=== PATIENT | male | born 1975 | race Caucasian/White ===

== ENCOUNTER 2019-08-06 10:56 | Inpatient (IN) | payer MEDICAID, OTHER ==
[~2019-08-06] VITALS: Ht 180.3 cm; Wt 99.2 kg
[2019-08-06] MEDS ORDERED: CHOL100018 PO (11:07)
[2019-08-06 12:23] LABS: BASOPHILS % (AUTO) 0.5 % (0.0-2.0); EOSINOPHILS % (AUTO) 2.4 % (1.0-6.0); HEMATOCRIT 44.7 % (41-53); HEMOGLOBIN 15.9 g/dL (13.5-17.5); LYMPHOCYTES % (AUTO) 30.3 % (22.0-44.0); MEAN CORPUSCULAR HEMOGLOBIN 29.7 pg (26.0-34.0); MEAN CORPUSCULAR HGB CONC 35.5 G/dL (31.0-37.0); MEAN CORPUSCULAR VOLUME 84 fL (80-100); MONOCYTES # (AUTO) 0.5 K/uL (0.1-1.0); MONOCYTES % (AUTO) 7.2 % (2.0-9.0); NEUTROPHILS # (AUTO) 3.9 K/uL (1.8-7.7); NEUTROPHILS % (AUTO) 59.6 % (40.0-70.0); PLATELET COUNT (AUTO) 191 K/uL (150-450); RED BLOOD CELL COUNT(AUTO) 5.35 MIL/uL (4.50-5.90); RED CELL DISTRIBUTION WIDTH 13.8 % (11.5-14.5)
[2019-08-06 12:26] LABS: APPEARANCE,URINE CLEAR (CLEAR); BILIRUBIN,URINE NEGATIVE (NEGATIVE); GLUCOSE, URINE (UA) NEGATIVE (NEGATIVE); KETONES,URINE NEGATIVE (NEGATIVE); LEUKOCYTE ESTERASE ,URINE NEGATIVE (NEGATIVE); NITRATE,URINE NEGATIVE (NEGATIVE); OCCULT BLOOD,URINE MODERATE (NEGATIVE); PH,URINE 6.5 (5.0-8.0); PROTEIN,URINE NEGATIVE (NEGATIVE); UROBILINOGEN,URINE 0.2 mg/dL (<=1.0)
[2019-08-06 12:28] LABS: AMPHET/METH SCREEN,URINE NEGATIVE (NEGATIVE); BARBITURATE SCREEN, URINE NEGATIVE (NEGATIVE); BENZODIAZEPINES SCREEN,URINE NEGATIVE (NEGATIVE); CANNABINOID SCREEN,URINE NEGATIVE (NEGATIVE); COCAINE SCREEN,URINE NEGATIVE (NEGATIVE); METHADONE SCREEN, URINE NEGATIVE (NEGATIVE); OPIATE SCREEN,URINE NEGATIVE (NEGATIVE)
[2019-08-06 12:29] LABS: PHENCYCLIDINE SCREEN,URINE NEGATIVE (NEGATIVE)
[2019-08-06 12:43] LABS: BACTERIA,URINE None Seen /HPF (None Seen); SQUAMOUS EPITHELIAL CELL,UR Few /LPF (None Seen); WBC,URINE None Seen /HPF (0-5)
[2019-08-06 12:52] LABS: ANION GAP 9 mmol/L (8-16); CALCIUM, TOTAL 9.1 mg/dL (8.8-10.5); CARBON DIOXIDE 28 mmol/L (22-29); CHLORIDE 102 mmol/L (98-107); CREATININE 1.08 mg/dL (0.60-1.30); GLOMERULAR FILTR. RATE CALC > 60 mL/min (>60); GLUCOSE,RANDOM 108 mg/dL (70-110); POTASSIUM 4.1 mmol/L (3.5-5.1); SODIUM SERUM 139 mmol/L (136-145); UREA NITROGEN, BLOOD 13 mg/dL (7-18)
[2019-08-06 12:58] LABS: ALANINE AMINOTRANSFERASE 68 U/L (12-78); ALBUMIN 4.4 g/dL (3.4-5.0); ALKALINE PHOSPHATASE 68 U/L (46-116); ASPARTATE AMINOTRANSFERASE 34 U/L (15-37); BILIRUBIN,TOTAL 0.6 mg/dL (0.1-1.0); TOTAL PROTEIN, SERUM 8.3 g/dL (6.4-8.2)
[2019-08-06] MEDS ORDERED: LORazepam 1 MG TABLET PO ONE (14:00)
[2019-08-06] MEDS ORDERED: ZOLPIDEM TARTRATE 10 MG TABLET PO PRN (14:30)
[2019-08-06] MEDS ORDERED: LORazepam 2 MG TABLET PO PRN (14:30)
[2019-08-06] MEDS ORDERED: HALOPERIDOL 5 MG TABLET PO PRN (14:30)
[2019-08-06 19:00] VITALS: BP 124/80
[2019-08-06] MEDS ORDERED: ALBUTEROL SULFATE HFA 90 MCG/PUFF 8 GM INHALER IH PRN (20:00)
[2019-08-06] MEDS ORDERED: PETROLATUM,WHITE 28 GM JELLY TP PRN (20:00)
[2019-08-06] MEDS ORDERED: CloNIDine HCL 0.1 MG TABLET PO PRN (20:00)
[2019-08-06] MEDS ORDERED: LOPERAMIDE HCL 2 MG CAPSULE PO PRN (20:00)
[2019-08-06] MEDS ORDERED: INFLUENZA VIRUS VACCINE QVS 2019-20 (3YR+)/PF 60 MCG/0.5 ML SYRINGE IM ONE (20:00)
[2019-08-06] MEDS ORDERED: MAGNESIUM HYDROXIDE SUSPENSION 30 ML UDCUP PO PRN (20:00)
[2019-08-06] MEDS ORDERED: ACETAMINOPHEN 325 MG TABLET PO PRN (20:00)
[2019-08-06] MEDS ORDERED: MAG HYDROX/AL HYDROX/SIMETH ES 30 ML SUSPENSION UDCUP PO PRN (20:00)
[2019-08-06] MEDS ORDERED: BACITRACIN 28.4 GM OINTMENT TP PRN (20:00)
[2019-08-06] MEDS ORDERED: BENZOCAINE/MENTHOL LOZENGE MM PRN (20:00)
[2019-08-06] MEDS ORDERED: IBUPROFEN 600 MG TABLET PO PRN (20:00)
[2019-08-06] MEDS ORDERED: ONDANSETRON HCL 4 MG TABLET PO PRN (20:00)
[2019-08-06] MEDS: AMITRIPTYLINE HCL 25 MG TABLET PO SCH (21:00)
[2019-08-07 08:31] VITALS: BP 128/78
[2019-08-07] MEDS: OMEPRAZOLE 20 MG CAPSULE PO SCH (09:00)
[2019-08-07] MEDS: DOCUSATE SODIUM 100 MG CAPSULE PO SCH (09:00)
[2019-08-07] MEDS ORDERED: CHOLECALCIFEROL (VIT D3) 1,000 UNITS TABLET PO SCH (09:00)
[2019-08-07] MEDS: CHOLECALCIFEROL (VIT D3) 1,000 UNITS TABLET PO SCH (10:33)
[2019-08-07 16:20] VITALS: BP 133/68
[2019-08-07] MEDS: DIVALPROEX SODIUM 500 MG DR TABLET PO SCH (17:15)
[2019-08-07] MEDS: LITHIUM CARBONATE 300 MG CAPSULE PO SCH (17:15)
[2019-08-07] MEDS: AMITRIPTYLINE HCL 25 MG TABLET PO SCH (20:12)
[2019-08-08 08:00] VITALS: BP 131/85
[2019-08-08] MEDS: CHOLECALCIFEROL (VIT D3) 1,000 UNITS TABLET PO SCH (08:45)
[2019-08-08] MEDS: DOCUSATE SODIUM 100 MG CAPSULE PO SCH (08:45)
[2019-08-08] MEDS: LITHIUM CARBONATE 300 MG CAPSULE PO SCH ×2 (08:45→16:26)
[2019-08-08] MEDS: OMEPRAZOLE 20 MG CAPSULE PO SCH (08:45)
[2019-08-08] MEDS: DIVALPROEX SODIUM 500 MG DR TABLET PO SCH ×2 (08:45→16:26)
[2019-08-08 16:00] VITALS: BP 123/78
[2019-08-08] MEDS: AMITRIPTYLINE HCL 25 MG TABLET PO SCH (20:34)
[2019-08-09 06:40] VITALS: BP 120/72
[2019-08-09 07:27] LABS: CHOL/HDL RATIO 5.3 (4.2-7.3)
[2019-08-09 08:00] VITALS: BP 139/95
[2019-08-09] MEDS: CHOLECALCIFEROL (VIT D3) 1,000 UNITS TABLET PO SCH (08:08)
[2019-08-09] MEDS: DIVALPROEX SODIUM 500 MG DR TABLET PO SCH (08:08)
[2019-08-09] MEDS: DOCUSATE SODIUM 100 MG CAPSULE PO SCH (08:08)
[2019-08-09] MEDS: OMEPRAZOLE 20 MG CAPSULE PO SCH (08:08)
[2019-08-09] MEDS: LITHIUM CARBONATE 300 MG CAPSULE PO SCH (08:08)
[2019-08-09] MEDS ORDERED: LITH300C3 PO (11:54)
[2019-08-09] MEDS ORDERED: DIVA-78 PO (11:54)
[2019-08-09] MEDS ORDERED: AMIT25TA9 PO (11:55)
== END 2019-08-09 13:15 | disposition home or self-care (01) | DRG 750 ==
LOC: EDSEX 10:59 → EMS 10:59 → B3A 15:17
PROVIDERS: ADMIT Psychiatry & Neurology Psychiatry; ATTEND Psychiatry & Neurology Psychiatry
DX: F25.9 Schizoaffective disorder, unspecified (principal); R45.851 Suicidal ideations; F22 Delusional disorders; R45.850 Homicidal ideations; K59.00 Constipation, unspecified; G47.00 Insomnia, unspecified; F41.9 Anxiety disorder, unspecified; E55.9 Vitamin D deficiency, unspecified; Z53.20 Procedure and treatment not carried out because of patient's decision for unspecified reasons; Z91.048 Other nonmedicinal substance allergy status
CPT/HCPCS: G0480